=== PATIENT | male | born 1940 | race Caucasian/White ===

== ENCOUNTER → 2021-10-10 | Outpatient (CLI) | payer MEDICARE ==
--- NOTE | 2021-10-10 12:21 | CARD ---
MR#: [id number] Date of Study: 10/10/2021 Ordering Physician: JULITO MCKENNA, Referring Physician: JULITO MCKENNA, Tech: Azra Greer, [facility] APPROVED REPORT EXAM: Two-dimensional and M-mode echocardiogram with Doppler and color Doppler. Other Information Quality : PoorHR: 64bpm Technically limited study due to body habitus. INDICATION Murmur RISK FACTORS Hypertension Hyperlipidemia 2D DIMENSIONS RVDd3.2 (2.9-3.5cm)Left Atrium(2D)3.0 (1.6-4.0cm) IVSd1.2 (0.7-1.1cm)Aortic Root(2D)3.8 (2.0-3.7cm) LVDd5.9 (3.9-5.9cm)LVOT Diameter2.2 (1.8-2.4cm) PWd1.2 (0.7-1.1cm)LVDs3.8 (2.5-4.0cm) FS (%) 35.1 %SV110.1 ml LVEF(%)63.6 (>50%) Aortic Valve AoV Peak Tulio.262.3cm/sAoV VTI60.4cm AO Peak GR.27.5mmHgLVOT Peak Tulio.178.0cm/s LVOT VTI 40.22cmAO Mean GR.15mmHg Mitral Valve MV E Ublqasux67.5cm/sMV E Peak Gr.4mmHg MV DECEL [id number] A Jbjnjwws797.4cm/s MV E Mean Gr.2mmHgE/A Ratio0.8 Pulmonary Valve PV Peak Tydmfccc47.8cm/sPV Peak Grad.3mmHg Tricuspid Valve TR P. Bemekexb575jo/sTR Peak Gr.17mmHg LEFT VENTRICLE The left ventricle is normal size. There is mild concentric left ventricular hypertrophy. The left ve ntricular systolic function is normal. The Ejection Fraction is 55-60%. There is normal LV segmental wall motion. Transmitral Doppler flow pattern is Grade I-abnormal relaxation pattern. RIGHT VENTRICLE The right ventricle is borderline dilated. There is normal right ventricular wall thickness. The righ t ventricular systolic function is normal. ATRIA The left atrium size is normal. The right atrium is not well visualized. The interatrial septum is in tact with no evidence for an atrial septal defect or patent foramen ovale as noted on 2-D or Doppler imaging. AORTIC VALVE The aortic valve is mildly thickened. Doppler and Color Flow revealed no significant aortic regurgita tion. There is no significant aortic valvular stenosis. Calculated aortic valve area is 3.7 cm2 with maximum pressure gradient of 28 mmHg and mean pressure gradient of 15 mmHg. MITRAL VALVE The mitral valve is normal in structure and function. There is no evidence of mitral valve prolapse. There is no mitral valve stenosis. Doppler and Color-flow revealed trace mitral regurgitation. TRICUSPID VALVE The tricuspid valve is not well visualized. Doppler and Color Flow revealed trace tricuspid regurgita tion. There is no tricuspid valve stenosis. PULMONIC VALVE The pulmonic valve is not well visualized. Doppler and Color Flow revealed no pulmonic valvular regur gitation. GREAT VESSELS The aortic root is mildly enlarged measuring 3.8 cm. The ascending aorta is Mildly dilated measuring 3.7 cm. The IVC is normal in size and collapses >50% with inspiration. PERICARDIAL EFFUSION There is no evidence of significant pericardial effusion. Critical Notification Critical Value: No <Conclusion> The left ventricular systolic function is normal. The Ejection Fraction is 55-60%. There is normal LV segmental wall motion. Transmitral Doppler flow pattern is Grade I-abnormal relaxation pattern. Trace mitral regurgitation. Trace tricuspid regurgitation. There is no evidence of significant pericardial effusion. Signed by : Nolan Morales, Electronically Approved : 10/10/2021 12:21:12
== END ==
LOC: ECHO 08:26
PROVIDERS: ATTEND Internal Medicine Cardiovascular Disease
DX: I35.0 Nonrheumatic aortic (valve) stenosis (principal); I51.7 Cardiomegaly; I77.819 Aortic ectasia, unspecified site
CPT/HCPCS: 93306

== ENCOUNTER → 2021-12-18 | Outpatient (CLI) | payer MEDICARE ==
--- NOTE | 2021-12-18 15:46 | RAD ---
Study: 1. XR KNEE_RT 1-2 VIEWS 2. XR KNEE_AP BILAT STANDING Indication: Knee pain. Comparison: 10/23/2021 Findings: Status post total knee arthroplasty. The hardware is intact and without evidence for loosening. Minim al defect at the ventral cortex of the femur just above the construct is unchanged from the prior and favored iatrogenic from surgery. No evidence for a periprosthetic fracture. Previously seen soft tis edita/intra-articular gas has resolved. The soft tissues remain edematous at the anterior knee. The partially exhibit left knee is without advanced arthrosis. Impression: 1. Intact and well fixated right total knee arthroplasty construct. 2. Resolved soft tissue/intra-articular gas. The anterior knee soft tissues still appear edematous. Electronically signed by: FAMILIA COCHRAN MD (12/18/2021 3:44 PM) [id number]
== END ==
LOC: RAD 12:24
PROVIDERS: ATTEND Physician Assistant
DX: Z96.651 Presence of right artificial knee joint (principal)
CPT/HCPCS: 73560; 73565